=== PATIENT | female | born 1980 | race Two or more races ===

== ENCOUNTER 2021-08-21 08:10 | Outpatient (REF) | payer OTHER, SELFPAY ==
[2021-08-21 09:21] LABS: COVID-19 Test Positive (Negative)
== END 2021-08-21 08:11 | disposition home or self-care (01) ==
LOC: HO.LAB 08:10
PROVIDERS: Visit Provider Internal Medicine
DX: Z20.822 Contact with and (suspected) exposure to COVID-19 (principal)
CPT/HCPCS: 87635; C9803

== ENCOUNTER → 2022-10-22 07:59 | Outpatient (BNVA) | payer OTHER, SELFPAY | PROVIDERS: PCP Internal Medicine; Referring Provider Internal Medicine; Visit Provider Physician Assistant Surgical | DX: Z13.89 Encounter for screening for other disorder (principal) ==

== ENCOUNTER 2022-10-22 16:54 | Outpatient (REF) | payer OTHER, SELFPAY ==
[2022-10-23 13:45] LABS: H Pylori Breath Test Negative (Negative)
== END 2022-10-22 16:55 | disposition home or self-care (01) ==
LOC: HO.LNP 16:54
PROVIDERS: Visit Provider Physician Assistant Surgical
DX: E66.01 Morbid (severe) obesity due to excess calories (principal); E11.9 Type 2 diabetes mellitus without complications; Z11.3 Encounter for screening for infections with a predominantly sexual mode of transmission
CPT/HCPCS: 83013

== ENCOUNTER → 2022-10-30 14:44 | Outpatient (REF) | payer OTHER, SELFPAY ==
--- NOTE | ~2022-10-30 | XR_ITS ---
EXAMINATION: XR CHEST CLINICAL INFORMATION: Morbid/severe obesity due to excess calories. COMPARISON: None available. TECHNIQUE: 2 views of the chest were obtained. FINDINGS: No significant abnormality is noted involving the heart, lungs, mediastinum, bony thorax or soft tissues. XR/XR chest 2V IMPRESSION: Unremarkable chest examination.
--- NOTE | 2022-10-30 14:53 | ECG_ITS ---
Test Reason : MORBID OBESITY Blood Pressure : / mmHG Vent. Rate : 090 BPM Atrial Rate : 090 BPM P-R Int : 176 ms QRS Dur : 078 ms QT Int : 358 ms P-R-T Axes : 044 063 042 degrees QTc Int : 437 ms Normal sinus rhythm Nonspecific ST abnormality Abnormal ECG No previous ECGs available Referred By: Juwan Connors Electronically Signed By:Anastacio Ayala
== END ==
LOC: HO.CARD 14:44
PROVIDERS: PCP Internal Medicine; Visit Provider Physician Assistant Surgical
DX: E66.01 Morbid (severe) obesity due to excess calories (principal); E11.9 Type 2 diabetes mellitus without complications
CPT/HCPCS: 71046; 93005

== ENCOUNTER 2022-11-03 06:09 | Outpatient (REF) | payer OTHER, SELFPAY ==
[2022-11-03 11:31] LABS: MANUAL DIFF FLAG NO
[2022-11-03 11:56] LABS: Estimated Average Glucose 131 mg/dL; Hemoglobin A1C 148.9717 umol/L; Hemoglobin A1c % 6.2 %
[2022-11-03 11:57] LABS: Basophils Percent Auto 0.3 % (0-2); Eosinophils Percent Auto 0.7 % (0-4); Hematocrit 40.6 % (37.0-47.0); Hemoglobin 13.1 g/dl (12.0-16.0); Imm Gran Abs Auto 0.02 X10*3/uL (0.00-0.03); Imm Gran Pct Auto 0.3 % (0.0-0.4); Lymphocytes Absolute Auto 1.8 X10*3/uL (1.2-4.9); Lymphocytes Percent Auto 29.4 % (20-40); Mean Corpuscular HGB Conc 32.3 g/dl (31.0-35.0); Mean Corpuscular Volume 83.7 fL (80.0-98.0); Mean Platelet Volume 10.6 fL (9.4-12.3); Monocytes Absolute Auto 0.5 X10*3/uL (0.1-1.2); Monocytes Percent Auto 8.9 % (2-11); Neutrophils Absolute Auto 3.7 x10*3/uL (2.0-8.3); Neutrophils Percent Auto 60.4 % (45-73); Platelet Count 286 X10*3/uL (160-400); Red Blood Count 4.85 X10*6/uL (4.20-5.50); Red Cell Distribution Width 13.8 % (11.0-16.0); White Blood Count 6.1 X10*3/uL (4.8-10.8)
[2022-11-03 12:43] LABS: Alanine Aminotransferase 21 U/L (0-31); Albumin Level 4.2 g/dL (3.5-5.0); Alkaline Phosphatase 56 U/L (39-117); Anion Gap 13 (12-20); Aspartate Amino Transferase 19 U/L (5-31); Blood Urea Nitrogen 15 mg/dL (9-16); C Reactive Protein 1.57 mg/dL (< or = 0.50); Calcium 9.3 mg/dL (8.4-10.2); Carbon Dioxide 26 mmol/L (22-29); Chloride 103 mmol/L (96-108); Cholesterol 149 mg/dL; Estimated Glomerular Filt Rate > 60; Glucose Random 127 mg/dL (60-115); HDL Cholesterol 45 mg/dL; LDL Cholesterol Calculated 92 mg/dl; Potassium 4.4 mmol/L (3.3-5.1); Sodium 138 mmol/L (135-145); Total Protein 7.3 g/dL (6.5-8.0); Triglycerides 63 mg/dL; Unsaturated Iron Binding 249 ug/dL
[2022-11-03 12:47] LABS: Iron 48 mcg/dL (30-160); Percent Iron Saturation 16 % (15-50); Total Iron Binding Capacity 297 mcg/dL (228-428)
[2022-11-03 13:01] LABS: Ferritin 120 ng/mL (10-250); Folate 10.7 ng/mL (> or = 4.0); Insulin 22 uU/mL (2-29); TSH reflex Free T4 2.09 uIU/mL (0.32-4.0); Vitamin B12 314 pg/mL (200-900); Vitamin D 25-OH Total 17.2 ng/mL (>30)
[2022-11-04 14:24] LABS: Calcium (PTHI) 9.6 mg/dL (8.6-10.2); PTHI 48 pg/mL (16-77)
[2022-11-07 00:48] LABS: Zinc 80 mcg/dL (60-130)
[2022-11-08 14:57] LABS: Vitamin B1 10 nmol/L (8-30)
[2022-11-09 00:58] LABS: Vitamin A 54 mcg/dL (38-98)
== END 2022-11-03 06:10 | disposition home or self-care (01) ==
LOC: HO.HMGCLDS 06:09
PROVIDERS: PCP Internal Medicine; Visit Provider Physician Assistant Surgical
DX: E11.9 Type 2 diabetes mellitus without complications (principal); E66.01 Morbid (severe) obesity due to excess calories; E55.9 Vitamin D deficiency, unspecified
CPT/HCPCS: 36415; 80053; 80061; 82306; 82607; 82728; 82746; 83036; 83525; 83540; 83970; 84425; 84443; 84590; 84630; 85025; 86140

== ENCOUNTER → 2022-11-10 15:33 | Outpatient (BNVA) | payer OTHER, SELFPAY | PROVIDERS: PCP Internal Medicine; Visit Provider Physician Assistant Surgical | DX: Z13.89 Encounter for screening for other disorder (principal) ==

== ENCOUNTER → 2022-12-01 12:48 | Outpatient (BNVA) | payer OTHER, SELFPAY | PROVIDERS: PCP Internal Medicine; Visit Provider Physician Assistant Surgical | DX: Z13.89 Encounter for screening for other disorder (principal) ==

== ENCOUNTER 2022-12-04 08:24 | Outpatient (REF) | payer OTHER, SELFPAY ==
--- NOTE | ~2022-12-04 | US_ITS ---
EXAMINATION: US COMPLETE ABDOMEN WITH LIVER ELASTOGRAPHY CLINICAL INFORMATION: Obesity COMPARISON: None available. TECHNIQUE: Real-time imaging of the abdominal viscera. Noninvasive ultrasound liver fibrosis assessment is performed using Melvin ElastPQ point quantification shear wave elastography (2D-SWE) with a C5-2 MHz transducer. Multiple elastography samples are obtained. FINDINGS: PANCREAS: Normal. ABDOMINAL AORTA: The proximal, middle, and distal aortic segments are normal in caliber. INFERIOR VENA CAVA: Visualized portions are normal. LIVER: Liver echotexture is slightly increased. Liver size and contour is normal. No focal lesion or intrahepatic biliary duct dilatation. The right lobe measures 16 cm in length. The left lobe measures 13.6 cm in length. Portal flow is normal/hepatopedal Shear wave liver elastography median stiffness is 2.2 m/s (reference: normal median stiffness is 1.3 m/s or less). IQR/median stiffness to assess sampling precision is 0.15 (reference: good quality data set is IQR/median stiffness of 0.15 or less). GALLBLADDER: Normal. The gallbladder is physiologically distended without evidence of stones, sludge, polyps, wall thickening or pericholecystic fluid. COMMON BILE DUCT: Normal in caliber measuring 0.3 cm in diameter. RIGHT KIDNEY: Slightly abnormal rotation. No hydronephrosis. No renal calculi or focal parenchymal lesions. The kidney measures 12 cm in maximum dimension. LEFT KIDNEY: Normal. No hydronephrosis. No renal calculi or focal parenchymal lesions. The kidney measures 13.5 cm in maximum dimension. SPLEEN: Normal. The spleen measures 11.8 cm in maximum dimension. FREE FLUID: None. US/US abdomen comp w elastography IMPRESSION: 1. Impression: Slightly echogenic liver probably representing fatty infiltration. 2. Liver elastography: Adequate liver sampling. Increased liver stiffness. REFERENCE: Society of Radiologists in Ultrasound Liver Stiffness Thresholds (2020): LIVER STIFFNESS THRESHOLDS: *Liver Stiffness equal or less than 1.3 m/s: High probability of being normal. *Liver Stiffness less than 1.7 m/s: In the absence of other known clinical signs, rules out compensated advanced chronic liver disease. *Liver Stiffness 1.7-2.1 m/s: Suggestive of compensated advanced chronic liver disease but need further test for confirmation. *Liver Stiffness over 2.1 m/s: Rules in compensated advanced chronic liver disease. *Liver Stiffness over 2.4 m/s: Suggestive of clinically significant portal hypertension. QUALITY OF DATA SET: *IQR/Median value equal or less than 0.15 implies a quality data set. *IQR/Median value over 0.15 implies a poor quality data set. SIGNIFICANT CHANGE FROM PRIOR EXAM: Significant change if liver stiffness measurement is 10% or greater from prior exam. OTHER CONSIDERATIONS: The stage of liver fibrosis may be overestimated in the setting of acute hepatitis, liver inflammation, elevated liver function tests, hepatic vascular congestion, obstructive cholestasis, non-fasting state, and infiltrative diseases such as amyloidosis and lymphoma. In some patients with NAFLD, the liver stiffness thresholds for compensated advanced chronic liver disease may be lower. In causes other than viral hepatitis and NAFLD, liver stiffness thresholds are not well established.
--- NOTE | ~2022-12-04 | FL_ITS ---
EXAMINATION: XR FLUOROSCOPY UPPER GI WITH AIR CLINICAL INFORMATION: Obesity COMPARISON: None available. TECHNIQUE: Upper GI was performed using thin and thick barium and effervescent granules. FINDINGS: Esophageal motility is normal. No hernia or reflux. The stomach and duodenum are normal. No fold thickening, mass, ulcer or stricture. FLUOROSCOPY TIME: 0.3 4.3 nguyen per centimeter squared. Total dose 14.7 mgy. 19 saved fluoroscopic images.: FL/FL upper GI w air IMPRESSION: Unremarkable examination.
== END 2022-12-04 08:25 | disposition home or self-care (01) ==
LOC: HO.US 08:24
PROVIDERS: PCP Internal Medicine; Visit Provider Physician Assistant Surgical
DX: Z01.818 Encounter for other preprocedural examination (principal); E66.01 Morbid (severe) obesity due to excess calories; K21.9 Gastro-esophageal reflux disease without esophagitis; E11.9 Type 2 diabetes mellitus without complications
CPT/HCPCS: 74246; 76705; 76981

== ENCOUNTER → 2022-12-09 14:23 | Outpatient (BNVA) | payer OTHER, SELFPAY | PROVIDERS: PCP Internal Medicine; Visit Provider Counselor Mental Health | DX: Z13.89 Encounter for screening for other disorder (principal) ==

== ENCOUNTER → 2022-12-24 11:30 | Outpatient (BNVA) | payer OTHER, SELFPAY | PROVIDERS: PCP Internal Medicine; Visit Provider Counselor Mental Health ==

== ENCOUNTER → 2022-12-25 08:28 | Outpatient (BNVA) | payer OTHER, SELFPAY | PROVIDERS: PCP Internal Medicine; Referring Provider Internal Medicine; Visit Provider Physician Assistant Surgical ==

== ENCOUNTER → 2022-12-29 13:58 | Outpatient (BNVA) | payer OTHER, SELFPAY | PROVIDERS: PCP Internal Medicine; Visit Provider Surgery ==

== ENCOUNTER → 2023-01-04 15:47 | Outpatient (BNVA) | payer OTHER, SELFPAY | PROVIDERS: PCP Internal Medicine; Visit Provider Dietitian, Registered | DX: E66.01 Morbid (severe) obesity due to excess calories (principal) | CPT/HCPCS: 97802 ==

== ENCOUNTER 2023-02-24 09:16 | Outpatient (AMB) | payer OTHER, SELFPAY ==
--- NOTE | 2023-02-24 09:00 | A.OFFVIS_ITS ---
Intake VS Expanded 02/24/23 09:17 Height 5 ft Weight 249 lb 8 oz BMI 48.7 Intake Visit Reasons: VIDEO F/U SWL Allergies No Known Allergies Allergy (Verified 12/29/22 14:02) HPI HPI Comments History of Present Illness Details The patient is a pleasant 42 year old female who returns to the clinic for pre-operative surgical weight loss management.? They were last seen in the office on 12/25/22, recorded weight at that time was 246.4 pounds, with a BMI of 48.1.? Today's weight is 249.5 pounds and BMI is 49.? There has been a weight loss of 14.3 pounds since initiating the surgical weight loss program on 10/22/22 with a total body weight loss of 5.42 %. Pre op work up completed as follows: SWL classes:? 01/21 BH appts: cleared-12/24/22 ? ? RD appts: cleared-01/04/23 Labs: 11/03/22-low D, B12:314, HgbA1c 6.2 H. pylori: 10/22/22-neg CXR: 10/30/22-nad EK10/30/22-non sp T wave abnl ABD U/S: 12/04/22-fatty liver UGI: 12/04/22-normal The patient reports she was on vacation and did not follow the meal plan at all. She returned after a week on 02/15/23. She struggled last week and is back on track this week. She was doing 1.5 scoops per shake and 10-12 forks per meal. Current meal plan includes: 2 Premier Protein shakes First shake, 1 scoop in 8 oz unsweetened almond milk at 630am-830am Second shake, 1 scoop in 8 oz unsweetened almond milk at 1030am-1230pm 1 protein bar (Zone Perfect) at 230pm-430pm. ? Dinner at 6pm (8 forks of protein and 8 forks of salad/vegetables). Drinking 50 oz of water Current exercise plan includes: walking outside, gym membership at [employer] [facility] Surgical History Hx of breast biopsy Hx of section Hx of dilation and curettage Hx of knee surgery Hx of tubal ligation Family History Mother No problems noted. Father Diabetes Heart disease Brother No problems noted. Brother No problems noted. Sister No problems noted. Son Autism Daughter No problems noted. Social History Alcohol intake: current Alcohol intake frequency: holidays/special occasions only Patient Tobacco Use Status: Never used Tobacco Review of Systems Const All systems reviewed & are unremarkable except as noted in HPI and below Physical Exam Const General: healthy appearing and no acute distress Resp Effort & Inspection: normal respiratory effort Auscultation: clear to auscultation bilaterally Cardio Rate: regular rate Rhythm: regular rhythm GI Auscultation: normal bowel sounds Extrem General: Yes normal to inspection Assessment & Plan Assessment & Plan (1) Morbid obesity: Code(s): E66.01 - Morbid (severe) obesity due to excess calories Plan: encouraged to return to strict adherance to meal plan. Encouraged to go to [employer] (has membership) 300 jeanne/d or 2000/w. RTC 3 weeks Coding Level of Care Code Tele Est Pt Level 3 (04324) Diagnoses Morbid obesity E66.01 Time Spent (min) 20
[2023-02-24 09:17] VITALS: BMI 48.7
== END 2023-02-24 09:19 | disposition home or self-care (01) ==
LOC: HO.HBS 09:16
PROVIDERS: PCP Internal Medicine; Visit Provider Physician Assistant Surgical
DX: E66.01 Morbid (severe) obesity due to excess calories (principal); Z68.42 Body mass index [BMI] 45.0-49.9, adult
CPT/HCPCS: 99213

== ENCOUNTER → 2023-02-24 09:16 | Outpatient (BNVA) | payer OTHER, SELFPAY | PROVIDERS: PCP Internal Medicine; Visit Provider Physician Assistant Surgical ==

== ENCOUNTER 2023-03-19 10:38 | Outpatient (AMB) | payer OTHER, SELFPAY ==
--- NOTE | 2023-03-19 10:41 | A.OFFVIS_ITS ---
Intake VS Expanded 03/19/23 10:47 Height 5 ft Weight 251 lb 3.2 oz BMI 49.1 BP 126/69 Blood Pressure Location Rt brachial Blood Pressure Position Sitting Pulse 80 Pulse Source Pulse Oximeter Temp 96.2 F L Temperature Source Temporal Artery Scan Pulse Oximetry 98 Oxygen Delivery Method Room Air Body Fat 122.4 Body Fat Percentage 48.7 Free Fat Mass 128.8 Muscle Mass 122.4 Visceral Mass 16.0 Water Mass 92.2 BMR 1,846 Intake Visit Reasons: (OV) F/U SWL Tamale Machine Feeder Required: No Allergies No Known Allergies Allergy (Verified 03/19/23 10:45) Medication List - Last Reconciled 03/19/23 by SERGO Valenzuela cholecalciferol (vitamin D3) 125 mcg PO DAILY cyanocobalamin (vitamin B-12) 500 mcg PO DAILY drospirenone (contraceptive) (Slynd) 1 tab PO DAILY ibuprofen 600 mg PO Q8H PRN HPI HPI Comments History of Present Illness Details The patient is a pleasant 42 year old female who returns to the clinic for pre-operative surgical weight loss management. They were last seen in the office on 02/24/23, recorded weight at that time was 249.8 pounds, with a BMI of 48.7. Today's weight is 251.2 pounds and BMI is 49. There has been a weight loss of 12.6 pounds since initiating the surgical weight loss program on 10/22/22 with a total body weight loss of 4.7 %. Pre op work up completed as follows: SWL classes:? 01/21 BH appts: cleared-12/24/22 ? ? RD appts: cleared-01/04/23 Labs: 11/03/22-low D, B12:314, HgbA1c 6.2 H. pylori: 10/22/22-neg CXR: 10/30/22-nad EK10/30/22-non sp T wave abnl ABD U/S: 12/04/22-fatty liver UGI: 12/04/22-normal The patient reports since last visit, she has had a change in schedule. Her [employer] job has changed in the timing. She has struggled to find the time to exercise and has felt increased hunger during the day. Inquiring about increasing scoop in first shake Current meal plan includes: 2 Premier Protein shakes First shake, 1 scoop in 8 oz unsweetened almond milk at 630am-830am Second shake, 1 scoop in 8 oz unsweetened almond milk at 1030am-1230pm 1 protein bar (Zone Perfect) at 230pm-430pm. ? Dinner at 6pm (8 forks of protein and 8 forks of salad/vegetables). Drinking 40-50 oz of water Current exercise plan includes: Active for work but nothing formal at the gym walking outside, gym membership at [employer] [facility] Surgical History Hx of breast biopsy Hx of section Hx of dilation and curettage Hx of knee surgery Hx of tubal ligation Family History Mother No problems noted. Father Diabetes Heart disease Brother No problems noted. Brother No problems noted. Sister No problems noted. Son Autism Daughter No problems noted. Social History Alcohol intake: current Alcohol intake frequency: holidays/special occasions only Patient Tobacco Use Status: Never used Tobacco Review of Systems Const All systems reviewed & are unremarkable except as noted in HPI and below Physical Exam Const General: healthy appearing and no acute distress Resp Effort & Inspection: normal respiratory effort Auscultation: clear to auscultation bilaterally Cardio Rate: regular rate Rhythm: regular rhythm GI Auscultation: normal bowel sounds Extrem General: Yes normal to inspection Assessment & Plan Assessment & Plan (1) Morbid obesity: Code(s): E66.01 - Morbid (severe) obesity due to excess calories Plan: discussed increasing scoop to 2 in the first shake. Discussed must exercise and increase water some Will rtc 5 weeks Given option to take a break due to busy schedule but she states she is going to find the time to add in exercise and did not want to take a break. Coding Level of Care Code Est Pt Level 3 (17016) Diagnoses Morbid obesity E66.01
[2023-03-19 10:47] VITALS: BP 126/69; PULSE 80; TEMP 35.7; O2SAT 98; BMI 49.1
== END 2023-03-19 11:11 | disposition home or self-care (01) ==
PROVIDERS: PCP Internal Medicine; Visit Provider Physician Assistant Surgical
DX: E66.01 Morbid (severe) obesity due to excess calories (principal); Z68.42 Body mass index [BMI] 45.0-49.9, adult
CPT/HCPCS: 99213

== ENCOUNTER → 2023-03-19 10:38 | Outpatient (BNVA) | payer OTHER, SELFPAY | PROVIDERS: PCP Internal Medicine; Visit Provider Physician Assistant Surgical ==